=== PATIENT | female | born 1970 | race African-American/Black ===

== ENCOUNTER → 2019-06-11 | Outpatient (CLI) | payer BC ==
--- NOTE | 2019-06-11 11:57 | CARD ---
MR#: [id number] Date of Study: 06/11/2019 Ordering Physician: BENJI WADSWORTH, Referring Physician: BENJI WADSWORTH, Tech: Kassandra Barron APPROVED REPORT EXAM: Two-dimensional and M-mode echocardiogram with Doppler and color Doppler. Other Information Quality : AverageHR: 131bpm Technically limited study due to Rapid heart rate INDICATION Arrhythmia Tachycardia RISK FACTORS Hyperlipidemia Diabetes 2D DIMENSIONS RVDd2.1 (2.9-3.5cm)Left Atrium(2D)3.1 (1.6-4.0cm) IVSd1.2 (0.7-1.1cm)Aortic Root(2D)3.4 (2.0-3.7cm) LVDd4.9 (3.9-5.9cm)LVOT Diameter2.0 (1.8-2.4cm) PWd1.0 (0.7-1.1cm)LVDs3.6 (2.5-4.0cm) FS (%) 27.0 %SV58.9 ml LVEF(%)52.5 (>50%) Aortic Valve AoV Peak Harshil.107.6cm/sAoV VTI15.0cm AO Peak GR.4.6mmHgLVOT Peak Harshil.110.5cm/s LVOT VTI 13.78cmAO Mean GR.3mmHg EYAD (VMAX)2.41ed3QTQ (VTI)2.94cm2 Mitral Valve MV E Gazhumhd778.1cm/sMV DECEL ZHIL871cs MV A Stsofayz21.2cm/sMV E Mean Gr.2mmHg MV NQT04lmL/A Ratio1.9 MVA (PHT)6.80cm2 TDI E/Lateral E'5.5E/Medial E'5.2 Pulmonary Valve PV Peak Jyndtfcn84.4cm/sPV Peak Grad.2mmHg Tricuspid Valve TR P. Qaptymed614br/sRAP IKPNRWDS1myDh TR Peak Gr.32lnOqQXVX90lwBg LEFT VENTRICLE The left ventricle is normal size. There is borderline to mild concentric left ventricular hypertroph y. The left ventricular systolic function is normal and the ejection fraction is within normal range. EF 55% There is normal LV segmental wall motion. The left ventricular diastolic function and filling is normal for age. RIGHT VENTRICLE The right ventricle is normal size. There is normal right ventricular wall thickness. The right ventr icular systolic function is normal. ATRIA The left atrium size is normal. The right atrium size is normal. The interatrial septum is intact wit h no evidence for an atrial septal defect or patent foramen ovale as noted on 2-D or Doppler imaging. AORTIC VALVE The aortic valve is thickened but opens well. Doppler and Color Flow revealed no significant aortic r egurgitation. There is no significant aortic valvular stenosis. MITRAL VALVE The mitral valve is thickened but opens well. There is no evidence of mitral valve prolapse. There is no mitral valve stenosis. Doppler and Color-flow revealed trace mitral regurgitation. TRICUSPID VALVE The tricuspid valve is normal in structure and function. Doppler and Color Flow revealed trace tricus pid regurgitation with an estimated PAP of 28 mmHg. There is no tricuspid valve stenosis. PULMONIC VALVE The pulmonic valve is not well visualized. Doppler and Color Flow revealed trace pulmonic valvular re gurgitation. There is no pulmonic valvular stenosis. GREAT VESSELS The aortic root is normal in size. The IVC is normal in size and collapses >50% with inspiration. PERICARDIAL EFFUSION There is a trace pericardial effusion. Critical Notification Critical Value: No <Conclusion> The left ventricular systolic function is normal and the ejection fraction is within normal range. EF 55% There is normal LV segmental wall motion. Signed by : Humberto Arredondo, Electronically Approved : 06/11/2019 11:56:46
== END | disposition home or self-care (01) ==
LOC: ECHO 10:37
PROVIDERS: ATTEND Internal Medicine Cardiovascular Disease
DX: I51.7 Cardiomegaly (principal); I47.1 Supraventricular tachycardia; E78.5 Hyperlipidemia, unspecified; E11.9 Type 2 diabetes mellitus without complications
CPT/HCPCS: 93306

== ENCOUNTER → 2019-06-29 | Outpatient (CLI) | payer BC ==
[~2019-06-29] MED LIST: ATOR10TA60 PO; CETI10TA16 PO; DULA1.5P SQ; LISI1TAB23 PO; MELO15TA23 PO; METO-239 PO; NYST15CR2 TP; SAXA1TBM3 PO
--- NOTE | 2019-06-29 11:39 | KCIC ---
Complete abdominal ultrasound 06/29/2019 10:30 AM Clinical History: Abdominal pain, jaundice, weight loss Technique: Ultrasound examination of the abdomen was performed, and multiple static images were submitted for review. Comparison: None Findings: Visualized portions of the pancreatic head are unremarkable. Pancreatic tail is nonvisualized. Large shadowing stone appears be present within the gallbladder lumen. What appears to be a wall echo shadow sign is noted within the gallbladder. This most commonly reflects the gallbladder contracted around a large stone, or conglomeration of smaller stones. No pericholecystic fluid is seen. There is a mass seen in the right hepatic lobe medially this measures approximately 3 cm in diameter with a peripheral hypoechoic halo. The mass appears to be solid. Internal blood flow is not clearly demonstrated. No other focal hepatic lesions are seen. Liver is mildly enlarged measuring 19 cm longitudinally. The common bile duct is nondilated measuring 3 mm in diameter. The right kidney is unremarkable in appearance measuring 11.8 cm in length. Left kidney is normal in appearance measuring 12.1 cm in length. Spleen is top normal in size measuring 11.5 cm longitudinally. IMPRESSION: 1. 2.9 cm mass, medial right liver. Neoplastic etiology not excluded. Further characterization with multiphase CT or MRI recommended. 2. Wall echo shadow sign suggesting color contracted around a large stone or conglomeration of small stones. This could be further evaluated with MRI imaging/MRCP as well 3. Mild hepatomegaly Electronically signed by: Javon Muller MD (06/29/2019 11:36 AM) [id number]
== END | disposition home or self-care (01) ==
LOC: KCIC US 10:26
PROVIDERS: ATTEND Family Medicine
DX: R16.0 Hepatomegaly, not elsewhere classified (principal); R63.4 Abnormal weight loss; R17 Unspecified jaundice
CPT/HCPCS: 76700

== ENCOUNTER → 2019-07-03 | Outpatient (CLI) | payer BC ==
[~2019-07-03] MED LIST changes: +GADOTERATE 7.5 MMOL/15ML VIAL. IVP ONE
--- NOTE | 2019-07-03 15:17 | KCIC ---
EXAM: MRI ABDOMEN WITH AND WITHOUT CONTRAST. HISTORY: Liver mass, jaundice, weight loss. TECHNIQUE: MRI of the abdomen was performed before and after the intravenous administration of 18 mL Dotarem. The patient possibly examination after contrast examination as does the acquisition was nondynamic. Three-dimensional reconstructions of the biliary tree were also performed. COMPARISON: 06/29/2019. FINDINGS: There are limitations from motion artifact on some series. The examination remains diagnostic for the following. Liver: A neil hepatis mass results in severe strictures at the confluence of the right and left hepatic ducts. There is mild delayed enhancement, and this is concerning for intrahepatic cholangiocarcinoma. This mass measures approximately 4.3 x 3.7 cm. Multiple masses elsewhere throughout the right and left hepatic lobes are consistent with hepatic metastatic disease. The largest in the right lobe measures 7.2 x 6.7 cm. The largest in the left lobe measures 4.7 x 3.8 cm. Biliary tree: A large gallstone the gallbladder neck measures 1.8 cm. Mild gallbladder wall thickening may reflect the underlying hepatic process. There is no clear pericholecystic inflammation. The common duct is not dilated. There are no suspicious pancreatic parenchymal lesions. The pancreatic duct is not dilated. Other findings: Multiple periportal and peripancreatic lymph nodes are also involved. The largest measures approximately 3.5 x 2.6 cm just superior to the pancreatic head. The kidneys, adrenal glands and spleen are unremarkable. IMPRESSION: 1. A mass at the confluence of the right and left hepatic ducts is concerning for intrahepatic cholangiocarcinoma and measures approximately 4.3 cm. Moderate intrahepatic biliary dilatation. Metastatic disease incidentally involving the confluence of ducts is a second possibility. 2. Multiple additional hepatic masses are consistent with metastatic disease. 3. Periportal lymph node metastases. 4. 1.8 cm gallstone in the gallbladder neck. Mild gallbladder wall thickening likely reflects underlying liver disease rather than cholecystitis. Correlate with other data. Electronically signed by: Kezia Rivera MD (07/03/2019 3:14 PM) [place] [id number]
== END | disposition home or self-care (01) ==
LOC: KCIC MRI 07:41
PROVIDERS: ATTEND Family Medicine
DX: K80.20 Calculus of gallbladder without cholecystitis without obstruction (principal); C77.2 Secondary and unspecified malignant neoplasm of intra-abdominal lymph nodes; R16.0 Hepatomegaly, not elsewhere classified
CPT/HCPCS: 74183; A9575